=== PATIENT | female | born 1975 | race Caucasian/White ===

== ENCOUNTER → 2023-07-16 14:33 | Outpatient (BNV) | payer BC, SELFPAY | PROVIDERS: PCP Internal Medicine; Referring Provider Internal Medicine; Visit Provider Internal Medicine Medical Oncology | DX: D64.9 Anemia, unspecified (principal) | CPT/HCPCS: 99204 ==

== ENCOUNTER 2024-01-09 19:52 | Emergency (ER) | payer BC, SELFPAY ==
--- NOTE | ~2024-01-09 | CT_ITS ---
EXAMINATION: CT HEAD WITHOUT CONTRAST CLINICAL INFORMATION: Head trauma. COMPARISON: None available. TECHNIQUE: Contiguous axial imaging was performed from the skull base to vertex without intravenous administration of contrast. This CT examination was performed using dose optimization techniques as appropriate, variously including the following: *Automated exposure control. *Adjustment of mA and/or kV according to patient size (this includes techniques or standardized protocols for targeted exams where dose is matched to indication/reason for exam; i.e. extremities or head). *Use of iterative reconstruction technique. DLP: 568 mGy-cm FINDINGS: There is no evidence of acute intracranial hemorrhage or edematous territorial infarction. Milligan-white matter differentiation is preserved. There is no abnormal attenuation within the brain parenchyma. The ventricles are normal in morphology and size. No evidence for obstructive hydrocephalus. No abnormal mass effect or midline shift. No extra-axial fluid collections. Mild subgaleal hematoma along the left parietal bone, measuring 0.1 cm in depth. No associated acute osseous abnormalities. Dehiscence of the nasal septum. Extensive mucosal thickening of the paranasal sinuses. The mastoid air cells and middle ear cavities are clear. CT/CT head/brain wo IV con IMPRESSION: 1. No evidence of acute intracranial hemorrhage or edematous territorial infarction. 2. Small left parietal scalp hematoma. No associated acute osseous abnormalities. 3. Extensive sinonasal disease. Dehiscence of the nasal septum. Electronically signed by: Kishor Chatman DO 01/09/2024 10:03 PM EDT
[2024-01-09 20:01] VITALS: BP 110/80; BP 117/71; PULSE 79; PULSE 80; RESP 20; TEMP 36.5; O2SAT 98; O2SAT 99; BMI 22.9
[2024-01-09 20:16] VITALS: BP 110/80; BP 117/71; PULSE 79; PULSE 80; RESP 20; TEMP 36.5; O2SAT 98; BMI 22.9
[2024-01-09] MEDS: Acetaminophen 325 MG TABLET 650 MG PO (20:32)
--- NOTE | 2024-01-09 20:59 | ED_ITS ---
HPI - General Adult General Chief complaint: Wound/Laceration Stated complaint: hit on top of head, 1 inch lac Time Seen by Provider: 01/09/24 20:14 Source: patient History of Present Illness ED Provider: Cinthia HPI narrative: 48-year-old female with past medical history of cocaine and alcohol use presenting for head injury. Patient was reaching down to fiber picker a towel in her bathroom when she stood up she hit her head on the windowsill. She denies LOC however she began bleeding from her head immediately and subsequently came to the emergency department. Patient is not on blood thinners. Patient states that she last used cocaine and alcohol 3 days ago. Her only complaint right now is head pain denying neck pain, dizziness, vomiting, nausea, photophobia. Related Data Home Medications ?Medication ?Instructions ?Recorded ?Confirmed buspirone 15 mg tablet 15 mg PO TID 07/16/23 07/16/23 clonidine HCl 0.1 mg tablet 0.1 mg PO TID 07/16/23 07/16/23 doxycycline hyclate 100 mg tablet 100 mg PO BID 07/16/23 07/16/23 lamotrigine 25 mg tablet 25 mg PO BID 07/16/23 07/16/23 oxcarbazepine 150 mg tablet 300 mg PO BID 07/16/23 07/16/23 trazodone 100 mg tablet 200 mg PO DAILY 07/16/23 07/16/23 valacyclovir 1 gram tablet 1,000 mg PO TID 07/16/23 07/16/23 Previous Rx's ?Medication ?Instructions ?Recorded folic acid 1 mg tablet 1 mg PO DAILY #90 tabs 08/02/23 Allergies Allergy/AdvReac Type Severity Reaction Status Date / Time pseudoephedrine Allergy Severe Unknown Verified 01/09/24 20:20 [From [facility]] Review of Systems Review of Systems: Patient endorses head pain Yes all other systems are reviewed and are negative PMFSH Past Medical History Medical History (Updated 01/09/24 @ 22:18 by Lowell Vicente MD) Carpal tunnel syndrome Surgical History (Updated 07/16/23 @ 16:18 by Camden Chaudhari MD) History of intestinal surgery Family History Family History (Updated 07/16/23 @ 14:41 by Eugenio Bain) Maternal Aunt Breast cancer Paternal Aunt Breast cancer Paternal Grandmother Colon cancer Social History Social History (Updated 07/16/23 @ 14:41 by Eugenio Bain) Household Members: Family Patient Tobacco Use Status: Never used Tobacco Advance Directives: No Advance Directives Information Provided: No Do you have a plan to hurt others: No Plan Patient : No service: No Current occupational status: unemployed Physical Exam ED Vital Signs: Vital Signs - 24 hr 01/09/24 20:01 01/09/24 20:16 01/09/24 22:12 Temperature 97.7 F 97.7 F 98.6 F Pulse Rate 79 79 72 Respiratory Rate 20 20 16 Blood Pressure 117/71 117/71 107/55 L Pulse Oximetry 98 98 98 Oxygen Delivery Method Room Air Room Air Room Air BMI result Body Mass Index 22.9 Well-appearing female No focal neurologic deficits appreciated Full-thickness 2 cm laceration to crown of head No midline C-spine tenderness Lungs clear to auscultation bilaterally; nonlabored breathing Normal S1-S2 regular rate rhythm Medications Administered Discontinued Medications Generic Name Dose Route Start Last Admin Trade Name Natalie PRN Reason Stop Dose Admin Acetaminophen 650 mg 01/09/24 20:27 01/09/24 20:32 Acetaminophen 325 Mg Tablet PO 01/09/24 20:28 650 mg ONCE ONE Administration Medical Decision Making Medical Decision Making MDM Narrative: This is a 48-year-old female presenting for head trauma. She has a laceration to her head. CT head ordered to rule out head bleed -patient has no midline C-spine tenderness and has full range of motion of her neck therefore I am not obtaining cervical spine imaging; patient appears clinically sober and is walking with steady gait -I was notified by nursing staff that patient walked out of the hospital and attempt to go home. She was brought back to her room and when I went to speak to her she states that she does not want to stay in hospital and she needs to go home to take care of her dogs. I explained to her that her workup is not complete and she still needs both head laceration repair and CT results. She states that she can follow up with her primary care physician tomorrow. I explained to her the dangers of leaving which include permanent disability and and she repeated these back to me stating she understands the risks however does not want to stay. Patient is not intoxicated and has full capacity therefore I will respect her wishes and she is willing to sign AMA form. Differential Diagnosis Differential Diagnoses: The differential diagnosis associated with the presentat ion includes Head laceration, head bleed Discharge Plan Discharge Clinical Impression: Laceration of head Qualifiers: Encounter type: initial encounter Location of open wound of head: scalp Foreign body presence: without foreign body Qualified Code(s): S01.01XA - Laceration without foreign body of scalp, initial encounter Patient Disposition: Left Against Medical Advice Additional Instructions: Please immediately return to the emergency department if you can Please go to primary care physician Prescriptions: No Action oxcarbazepine 150 mg tablet 300 mg PO BID clonidine HCl 0.1 mg tablet 0.1 mg PO TID valacyclovir 1 gram tablet 1,000 mg PO TID lamotrigine 25 mg tablet 25 mg PO BID trazodone 100 mg tablet 200 mg PO DAILY doxycycline hyclate 100 mg tablet 100 mg PO BID buspirone 15 mg tablet 15 mg PO TID folic acid 1 mg Tablet 1 mg PO DAILY Qty: 90 3RF Stand Alone Forms: Against Medical Advice Discharge Date/Time: 01/09/24 22:21 Print Language: Slovak
[2024-01-09 22:12] VITALS: BP 107/55; PULSE 72; RESP 16; TEMP 37; O2SAT 98
--- NOTE | 2024-01-09 22:14 | PC.NURSE ---
pt self ambulating within room, sts she is leaving and already called an uber to bring her home. provider notified and to bedside to discuss plan of care with pt, pt continue stating she is leaving, verbalizing awareness of leaving against medical advice.
== END 2024-01-09 22:21 | disposition left against medical advice (07) ==
PROVIDERS: Emergency Provider Student in an Organized Health Care Education/Training Program; PCP Internal Medicine
DX: S01.01XA Laceration without foreign body of scalp, initial encounter (principal); W22.09XA Striking against other stationary object, initial encounter; Y93.9 Activity, unspecified; Y92.9 Unspecified place or not applicable; Y99.9 Unspecified external cause status; R51.9 Headache, unspecified; Z53.29 Procedure and treatment not carried out because of patient's decision for other reasons
CPT/HCPCS: 70450; 99284

== ENCOUNTER 2024-08-25 04:52 | Emergency (ER) | payer BC, SELFPAY ==
[2024-08-25 05:00] VITALS: BP 111/54; PULSE 112; PULSE 50; RESP 20; TEMP 36.8; O2SAT 95; BMI 25.7
--- NOTE | 2024-08-25 05:15 | PC.NURSE ---
pt in 18H demanding to be moved into a room, asking how long the wait is and when the doctor is coming because she needs benzos and clonidine for withdrawal. 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 Per MD Ca as long as patient is ambulatory and not SI she is free to leave. pt denies SI/HI/ states she is leaving and will not wait for the doctor.
--- NOTE | 2024-08-25 05:19 | PC.NURSE ---
ambulated out of treatment room with a steady gait, phone in hand states she is calling for a ride
--- OUTSIDE RECORDS SUMMARY | 2024-08-25 05:24 | XMS_ITS | Data Portability ---
Author Organization [place] [facility], Allergy Address [address] [place] [id number] Care Team Providers Care Greenhouse Technician Name Role Phone KULDEEP HAJI Primary Care Provider KULDEEP HAJI Referring Provider Assessment Encounter Date Assessment Date Assessment LastModified by Organization Details LastModified Time 09/18/2023 09/18/2023 Patient notes 3 to 4 months of severe sinus pain and pressure with obstruction requiring manual removal of crusting. Hx polysubstance use. last cocaine 2018. Last oxycodone in nose around 2019 and last alcohol use May 21, 2022. Reports iron deficiency and B12 deficiency requiring iron infusions Very anxious and lots of stress Recent laboratory studies showed mildly elevated sedimentation rate at 37 with normal ANCA. We discussed the findings of erosion of the nasal septum and lateral nasal wall is suspicious for either complications related to substance abuse or vasculitis. The laboratory studies for vasculitis are negative. She reports that previous drug testing has falsely shown positivity for fentanyl so she would presently declined any additional testing. She adamantly reports that she has not used any drugs other than as noted above. At this point I have suggested a nasal endoscopy and biopsy under anesthesia for diagnostic purposes. We discussed that the goal would not necessarily be therapeutic treatment of her sinuses given the extensive erosion we need to figure out whether there is vasculitis or so fungal disease. Risks discussed mike Not available 09/18/2023 15:32:31 10/15/2023 10/15/2023 We discussed the results of the biopsy and I suggested saline irrigations. She will follow-up with me in 3 months or sooner if necessary mike Not available 10/15/2023 16:44:34 Plan of Treatment Reminders Order Date Submit Date Provider Last Modified By Organization Details Last Modified Time Details Appointments None recorded. Lab None recorded. Referral None recorded. Procedures None recorded. Surgeries endoscopy, nasal/sinus , surgical, with biopsy, polypectomy or debridement (SURG) 2023 024 [email or web address] 9 Not available 16:07:57 endoscopy, nasal/sinus , w/ maxillary antrostomy & tissue removal (SURG) 2023 024 [email or web address] 9 Not available 4 16:08:09 stereotacti c computer-as sisted navigation (SURG) 2023 024 [email or web address] 9 Not available 16:08:22 Imaging None recorded. Medication Orders None recorded. Patient TargetsNo targets recorded. Patient InstructionsNo instructions recorded. Reason for Referral None Reported. Results Created Date Observation Date Name Description Value Unit Range Abnormal Flag Note LastModifiedBy Organization Detail LastModifiedTime 09/18/19 24 08/21/2023 CT, maxil lofac ial, w/o contr ast No observ ation record ed. [email or web address] Not Available 11/2023 15:41:14 10/03/19 24 10/02/2023 clini kathryn photo * No observ ation record ed. Not Available 14:21:35 10/11/19 24 10/02/2023 clini kathryn photo * No observ ation record ed. [email or web address] Not Available 03/2023 08:45:16 Result Notes None recorded. Problems Name Problem SNOMED Code Status Onset Date Resolution Date Notes Provider Name and Address Organization Details Recorded Time Perforation of nasal septum 03090597 Active 2023 ORLANDO PUENTE MD [address] [address], [place], [phone], [facility] - [facility] 15:29:59 Chronic sinusitis 63727099 Active 2023 ORLANDO PUENTE MD [address] [facility] [address], [place], [phone], [place] [facility] 15:30:07 History of substance abuse 248313504 Active 2023 ORLANDO PUENTE MD [address] [address], [place], [address], [place] [facility] 15:30:33 Chronic rhinitis 13144623 Active 2023 ORLANDO PUENTE MD [address] [address], [place], [phone], [facility] - [facility] 16:44:48 COVID-19 664609093 Active 2023 ORLANDO PUENTE MD [address] [address], [place], [address], [facility] - [facility] 16:45:04 Problem Notes None recorded. Procedures Surgical History Date Name Laterality Status Provider Name and Address Organization Details Recorded Time JMSNasal/Sinus Endoscopy completed ORLANDO GARCIA MD [address] [address], [place], [phone], [facility] - [facility] 09/18/2023 15:27:40 Imaging Results None recorded. Procedure Notes None recorded. Medical Equipment None Reported. Medications Name Sig Start Date Stop Date Status Note LastModified by Organization Details LastModified Time budesonide 32 mcg/actuation nasal spray INSTILL 2 SPRAYS INTO EACH NOSTRIL ONCE DAILY. ONCE SYMPTOMS IMPROVE, THEN SPRAY 1 INTO EACH NOSTRIL ONCE DAILY MAX 128MCG/DA Y) active Not Available Not Available No t Available clotrimazole 10 mg jacquelin DISSOLVE ONE JACQUELIN MOUTH/THR OAT FIVE TIMES A DAY FOR 14 DAYS active Not Available Not Available No t Available oxcarbazepine 150 mg tablet TAKE TWO TABLETS BY MOUTH TWICE A DAY active Not Available Not Available No t Available venlafaxine ER 37.5 mg capsule,extend ed release 24 hr TAKE ONE CAPSULE BY MOUTH EVERY DAY WITH FOOD IN ADDITION TO 150MG CAPSULE FOR TOTAL DAILY DOSE OF 187.5MG. DO NOT CRUSH OR CHEW active Not Available Not Available No t Available clonidine HCl 0.1 mg tablet TAKE ONE TABLET BY MOUTH THREE TIMES A DAY active Not Available Not Available No t Available prednisone 20 mg tablet TAKE TWO TABLETS BY MOUTH EVERY DAY FOR 7 DAYS AND THEN, TAKE ONE TABLET BY MOUTH EVERY DAY FOR 7 DAYS active Not Available Not Available No t Available gabapentin 400 mg capsule TAKE ONE CAPSULE BY MOUTH THREE TIMES A DAY active Not Available Not Available No t Available venlafaxine ER 150 mg capsule,extend ed release 24 hr TAKE ONE CAPSULE BY MOUTH EVERY DAY active Not Available Not Available No t Available sulfamethoxazo le 800 mg-trimethopri m 160 mg tablet TAKE ONE TABLET BY MOUTH TWICE A DAY FOR 14 DAYS active Not Available Not Available No t Available amoxicillin 500 mg tablet TAKE ONE TABLET BY MOUTH THREE TIMES A DAY FOR 10 DAYS active Not Available Not Available No t Available lamotrigine 25 mg tablet TAKE ONE TABLET BY MOUTH TWICE A DAY active Not Available Not Available No t Available carbamazepine 200 mg tablet TAKE ONE TABLET BY MOUTH TWICE A DAY active Not Available Not Available No t Available magnesium oxide 400 mg (241.3 mg magnesium) tablet TAKE ONE TABLET BY MOUTH EVERY DAY active Not Available Not Available No t Available trazodone 100 mg tablet TAKE TWO TABLETS BY MOUTH EVERY EVENING AT BEDTIME active Not Available Not Available No t Available gabapentin 300 mg capsule TAKE ONE CAPSULE BY MOUTH THREE TIMES A DAY active Not Available Not Available No t Available omeprazole 20 mg capsule,delaye d release TAKE ONE CAPSULE BY MOUTH EVERY DAY active Not Available Not Available No t Available folic acid 1 mg tablet TAKE ONE TABLET BY MOUTH EVERY DAY active Not Available Not Available No t Available levofloxacin 500 mg tablet TAKE ONE TABLET BY MOUTH EVERY DAY FOR 14 DAYS active Not Available Not Available No t Available methylpredniso lone 4 mg tablets in a dose pack TAKE SIX TABLETS FOR 1 DAY, THEN FIVE TABLETS FOR 1 DAY, THEN FOUR TABLETS FOR 1 DAY,THEN THREE TABLETS FOR 1 DAY, THEN TWO TABLETS FOR 1 DA active Not Available Not Available No t Available doxycycline hyclate 100 mg tablet TAKE ONE TABLET BY MOUTH TWICE A DAY FOR 14 DAYS WITH FLUIDS active Not Available Not Available No t Available amoxicillin 875 mg-potassium clavulanate 125 mg tablet TAKE ONE TABLET BY MOUTH EVERY 12 HOURS FOR 28 DAYS active Not Available Not Available No t Available buspirone 15 mg tablet TAKE ONE TABLET BY MOUTH THREE TIMES A DAY active Not Available Not Available No t Available duloxetine 60 mg capsule,delaye d release TAKE ONE CAPSULE BY MOUTH TWICE A DAY active Not Available Not Available No t Available GaviLyte-G 236 gram-22.74 gram-6.74 gram-5.86 gram oral solution DRINK 240ML BY MOUTH EVERY 10 MINUTES active Not Available Not Available No t Available riboflavin (vitamin B2) 400 mg tablet TAKE ONE TABLET BY MOUTH EVERY DAY active Not Available Not Available No t Available Nurtec ODT [address] ONE TABLET BY MOUTH EVERY DAY NEEDED FOR MIGRAINE active Not Available Not Available No t Available Vitals Date Recorded Body height Body mass index (BMI) Body weight Provider Name and Address Organization Details Last Updated DateTime 09/18/2023 165.1 cm 23.3 kg/m2 20888.93 g Kale Lilly [place] [facility] 09/18/2023 14:51:16 Social History None recorded. Functional Status None recorded. Mental Status None recorded. Family History Nothing Reported. Medical History No medical history recorded. Gynecological HistoryNo gynecological history recorded. Obstetrics History GPAL:G 0 P 0 0 0 0 Past Encounters Encounter ID Performer Location Encounter Start Date Encounter Closed Date Diagnosis/Indication Diagnosis SNOMED-CT Code Diagnosis ICD10 Code Diagnosis Note [id number] ORLANDO LEON MD [facility] [address] [address] 09/18/2023 14:12:37 09/18/2023 15:37:52 Perforation of nasal septum 37857785 J34.89 Chronic sinusitis 081948 00 J32.9 Please contact my surgical instrument maker, Namita, at to schedule the procedure. The risks and benefits of endoscopic sinus surgery were discussed with the patient, including: bleeding, infection, anosmia (loss of sense of smell), epiphora (tearing), double vision, loss of vision, CSF leak, continued nasal obstructio n, brain injury, septal perforatio n and continued sinus infections . The patient's questions regarding surgery were discussed in detail and their concerns were addressed. The patient provided verbal informed consent and surgery will be scheduled in the near future. History of substance abuse 110573986 F19.21 [id number] ORLANDO LEON MD [facility] [address] [address] 10/15/2023 16:11:53 10/15/2023 16:54:08 Chronic rhinitis 92027635 J31.0 Perforatio n of nasal septum 05209526 J34.89 COVID-19 307712531 U07.1 Health Concerns Section Related Observation LastModified by Organization Detai ls LastModified Time None Recorded Concern Status LastModified by Organization Details LastModified Time None Recorded Advance Directives Directive None Recorded Payers Insurance Date Sequence Insurance Name Policy Number Policy Varela Covered Member ID Varela Member ID Guarantor Name 01/18/2024 1 [place] [facility] [id number] Piero Gonzales William [id number] Notes Date Note Type Note Provider Name and Address Organization Details Recorded Time 09/18/2023 text/html Patient notes 3 to 4 months of severe sinus pain and pressure with obstruction requiring manual removal of crusting. Hx polysubstance use. last cocaine 2018. Last oxycodone in nose around 2019 and last alcohol use May 21, 2022.Reports iron deficiency and B12 deficiency requiring iron infusionsVery anxious and lots of stressRecent laboratory studies showed mildly elevated sedimentation rate at 37 with normal ANCA. ORLANDO GARCIA MD [address] [place] [address],[address], [phone], [facility] - [facility] 09/18/2023 15:33:49 10/15/2023 text/html Patient seen in follow-up after multiple nasal biopsies showed some granulation tissue but no fungal disease or vasculitis. There was a small area of foreign material but not likely to be the cause. She denies any recent intranasal pharmaceutical use. Reports last opioid use 2021. Presently has COVID-19 infection ORLANDO GARCIA MD [address] [facility],[address], [address], [facility] - [facility] 10/15/2023 16:45:21 OBGyn Episode No OBEpisode recorded.
== END 2024-08-25 05:20 | disposition left against medical advice (07) ==
PROVIDERS: Emergency Provider Emergency Medicine; PCP Internal Medicine
DX: F19.90 Other psychoactive substance use, unspecified, uncomplicated (principal); Z53.21 Procedure and treatment not carried out due to patient leaving prior to being seen by health care provider
CPT/HCPCS: 99281

== ENCOUNTER 2024-09-02 15:29 | Emergency (ER) | payer BC, SELFPAY ==
[2024-09-02 15:38] VITALS: PULSE 115
[2024-09-02 15:47] VITALS: BP 112/82; PULSE 118; RESP 24; TEMP 37.1; O2SAT 94; BMI 20.6
--- NOTE | 2024-09-02 15:58 | ECG_ITS ---
Test Reason : OVERDOSE Blood Pressure : */* mmHG Vent. Rate : 88 BPM Atrial Rate : 88 BPM P-R Int : 110 ms QRS Dur : 84 ms QT Int : 370 ms P-R-T Axes : 0 52 40 degrees QTcB Int : 447 ms Sinus rhythm with short MA Otherwise normal ECG No previous ECGs available Referred By: Shaan Merlos Electronically Signed By: MAYO KOO
--- NOTE | 2024-09-02 16:00 | ED.GENADULT ---
HPI - General Adult General Chief complaint: ETOH/Substance Use Stated complaint: SI, erratic, section 12 Time Seen by Provider: 09/02/24 15:48 Source: patient, EMS and police Mode of arrival: EMS Limitations: no limitations History of Present Illness ED Provider: DR. Merlos HPI narrative: 49-year-old female history of drug use as per patient mostly cocaine for long time, patient was not able to use drugs for the past few days, patient claimed that she brought heroin from the street yesterday that she was scared to use because she pure fentanyl. Stated that if she does not use cocaine for several days she gets very agitated and get a bizarre behavior. Patient stated that she took the heroin yesterday an intention to hurt herself because she felt SI, now patient do not feel SI anymore feel very agitated and requesting sedative to come her down. Patient is under section 12 by the police sergeant. Related Data Home Medications ?Medication ?Instructions ?Recorded ?Confirmed buspirone 15 mg tablet 15 mg PO TID 07/16/23 09/03/24 clonidine HCl 0.1 mg tablet 0.1 mg PO TID 07/16/23 09/03/24 lamotrigine 25 mg tablet 25 mg PO BID 07/16/23 09/03/24 trazodone 100 mg tablet 200 mg PO BEDTIME PRN Insomnia 07/16/23 09/03/24 duloxetine 60 mg capsule,delayed 60 mg PO DAILY 09/03/24 09/03/24 release gabapentin 400 mg capsule 400 mg PO TID 09/03/24 09/03/24 nifedipine 60 mg tablet,extended 60 mg PO DAILY 09/03/24 09/03/24 release propranolol 10 mg tablet 10 mg PO BID PRN Anxiety 09/03/24 09/03/24 Allergies Allergy/AdvReac Type Severity Reaction Status Date / Time pseudoephedrine (From Allergy Severe Unknown Verified 09/02/24 15:48 Sudafed) Review of Systems Review of Systems: All other systems are reviewed and are negative Constitutional: Reports as per HPI and Reports no additional constitutional complaints Eyes: Reports as per HPI and Reports no additional eye complaints Reports system reviewed and no additional complaints, except as documented Cardiovascular: Reports as per HPI and Reports no additional cardiovascular complaints Respiratory: Reports as per HPI and Reports no additional respiratory complaints Gastrointestinal: Reports as per HPI and Reports no additional gastrointestinal complaints Genitourinary: Reports no additional female genitourinary complaints Musculoskeletal: Reports no additional musculoskeletal complaints Skin/Breast: Reports system reviewed and no additional complaints, except as docu Psychiatric: Reports no additional psychiatric complaints Endocrine: Reports no additional endocrine complaints Hematologic/Lymphatic: Reports no additional hematologic/lymphatic complaints Allergic/Immunologic: Reports no additional allergic/immunologic complaints Reports system reviewed and no additional complaints, except as documented and Reports Abnormal speech present [facility] Past Medical History Medical History Carpal tunnel syndrome Surgical History History of intestinal surgery Family History Family History Maternal Aunt Breast cancer Paternal Aunt Breast cancer Paternal Grandmother Colon cancer Social History Social History Household Members: Family Patient Tobacco Use Status: Never used Tobacco Advance Directives: No Advance Directives Information Provided: No service: No Current occupational status: unemployed Physical Exam ED Vital Signs: Vital Signs - 24 hr 09/03/24 15:30 09/03/24 19:59 09/03/24 20:01 Temperature Pulse Rate 82 Respiratory Rate 16 Blood Pressure 133/72 133/72 Pulse Oximetry Oxygen Delivery Method 09/03/24 20:04 09/03/24 21:07 Temperature 99.0 F 99 F Pulse Rate 82 82 Respiratory Rate 20 20 Blood Pressure 133/72 133/72 Pulse Oximetry 98 98 Oxygen Delivery Method Room Air Room Air BMI result Body Mass Index 20.6 Vital signs have been reviewed and appear to be correct. Blood pressure elevated. Heart rate elevated. Respiratory elevated. Temperature normal. Oxygen saturation normal. Appearance: Agitated, erratic behavior, still cooperative. No acute distress. Head: Normal external exam. Normocephalic. Atraumatic. No Serrano signs noted. No raccoon eyes noted Eyes: PERRLA. EOMI. Conjunctiva and sclera normal. Eyelids normal. ENT: TM's Normal. Pharynx normal. Uvula midline. Moist mucous membranes. No trismus noted. No drooling noted. No muffled voice noted. Neck: Normal inspection. Neck supple. FROM. No adenopathy. Thyroid Normal. No meningeal signs. No neck mass noted. CVS: Normal heart rate and rhythm. Heart sound normal. No murmurs noted. Pulses normal throughout. Respiratory: No respiratory distress. Painless inspiration. Breath sounds normal. No wheezes/rales/rhonchi noted. Chest nontender. No accessory muscle usage noted or decreased air movement noted. Abdomen: Soft and nontender. Bowel sounds normal in all 4 quadrants. No distention noted. No organomegaly noted. No visible injury noted. Back: No CVA tenderness. Full range of motion noted. Skin: Skin warm and dry. Normal skin color. Normal skin turgor. No rashes/lesions/lacerations noted. Extremities: No lower extremity edema. Extremities exhibit normal range of motion. Extremities nontender. Neuro: Oriented X 3. Cranial nerve exam: II-XII are grossly intact No motor deficit. No sensory deficit. Reflexes normal. Patient Orientation: Person, Place, Time and Situation, okay hygiene and grooming. Fair eye contact, attentive, no tics or tremors. Level of Consciousness: Awake, Appropriate and Alert Patient Behavior: Appropriate, Guarded, Cooperative and Anxious Mood Description: Constricted, Blunted and Apprehensive Affect Description: Constricted, Blunted and Apprehensive Patient Cognition Impaired: No Ability to Follow Directions: Excellent Speech Pattern: Clear, Appropriate and Spontaneous Speech, nonpressured, spontaneous with regular rate and rhythm, normal volume and prosody. No dysarthria. Memory Description: Intact, Immediate Intact and Short Term Intact Hallucinations: None Delusions: Not Present Thought Process: Intact Thought Content: positive for Intact, positive for Logical, denies Suicidal Ideation and denies Homicidal Ideation. Depressive Symptoms: Not present. Judgement and Insight: Limited but adequate. Course Reevaluation(s) Reevaluation #1: Medically cleared, will start physician observation, patient found initially to be hypoglycemic no known history of diabetes on this patient, because patient needed sedation for erratic behavior concern of having occult hypoglycemia until patient is awake and able to tolerate p.o. intake. Continue with section 12 while in the ED, continue with one-to-one observation. Time: 19:17 Reevaluation #2: Time: 16:30 Date: 09/03/24 Provider: Alton Ca MD The patient is a 49-year-old female who presented to the emergency department yesterday after having had a heroin overdose. It was unclear if there has been any intention quality with regard to this overdose. She was medically cleared yesterday. However she was kept in the emergency room for evaluation by the care team. The patient was seen by the care team today. Apparently the patient has had a lot of psychosocial stressors and a lot of family dysfunction recently. Ultimately the care team evaluation was that the patient should be kept in the hospital on a section 12 for a dual diagnosis bed search. Reevaluation #3: 09/04/2024 21:00 DR. Mrelos's Progress note: Discontinue physician observation now, patient will be transferred to inpatient [facility] hospital for dual diagnosis. Time: 21:00 Medications Administered Discontinued Medications Generic Name Dose Route Start Last Admin Trade Name Colbyq PRN Reason Stop Dose Admin Buspirone HCl 15 mg 09/03/24 21:00 09/03/24 19:59 Buspirone Hcl 5 Mg Tablet PO 15 mg TID KATINA Administration Clonidine HCl 0.1 mg 09/03/24 21:00 09/03/24 19:59 Clonidine Hcl 0.1 Mg Tablet PO 0.1 mg TID KATINA Administration Protocol Dextrose 25 gm 09/02/24 17:42 09/02/24 17:44 Dextrose 50 % 25 Gm/50 Ml Syringe IVPUSH 09/02/24 17:43 25 gm ONCE ONE Administration Diazepam 2.5 mg 09/02/24 15:59 09/02/24 16:12 Diazepam 10 Mg/2 Ml Cartridge IVPUSH 09/02/24 16:00 2.5 mg STAT STA Administration Diazepam 2.5 mg 09/02/24 16:56 09/02/24 17:06 Diazepam 10 Mg/2 Ml Cartridge IVPUSH 09/02/24 16:57 2.5 mg STAT STA Administration Diazepam 10 mg 09/03/24 00:50 09/03/24 00:55 Diazepam 5 Mg Tablet PO 09/03/24 00:51 10 mg ONCE ONE Administration Diphenhydramine HCl 25 mg 09/02/24 19:24 09/02/24 19:31 Diphenhydramine Hcl 50 Mg/Ml Vial IVPUSH 09/02/24 19:25 25 mg ONCE ONE Administration Gabapentin 400 mg 09/03/24 21:00 09/03/24 19:59 Gabapentin 400 Mg Capsule PO 400 mg TID KATINA Administration Dextrose 1,000 mls @ 125 mls/hr 09/02/24 17:45 09/03/24 14:49 D5w IVCONT Not Given .Q8H KATINA Lamotrigine 25 mg 09/03/24 21:00 09/03/24 19:59 Lamotrigine 25 Mg Tablet PO 25 mg BID KATINA Administration Lorazepam 2 mg 09/03/24 13:29 09/03/24 13:39 Lorazepam 1 Mg Tablet PO 09/03/24 13:30 2 mg ONCE ONE Administration Lorazepam 2 mg 09/03/24 14:44 09/03/24 14:48 Lorazepam 1 Mg Tablet PO 09/03/24 14:45 2 mg ONCE ONE Administration Ondansetron HCl 4 mg 09/02/24 19:24 09/02/24 19:31 Ondansetron Hcl 4 Mg/2 Ml Vial IVPUSH 09/02/24 19:25 4 mg ONCE ONE Administration Propranolol HCl 10 mg 09/03/24 16:31 09/03/24 20:01 Propranolol Hcl 10 Mg Tablet PO 10 mg BID PRN Administration Anxiety Protocol Trazodone HCl 200 mg 09/03/24 21:00 09/03/24 19:58 Trazodone Hcl 100 Mg Tablet PO 200 mg BEDTIME PRN Administration Insomnia Medical Decision Making Medical Decision Making [facility] Narrative: Patient is seen by care team will be transferred to [facility] for polysubstance abuse and depression Differential Diagnosis Differential Diagnoses: The differential diagnosis associated with the presentation includes (Intentional overdose, narcotic withdrawal, electrolyte derangement, severe anemia.) Admission/Observation Consideration of admission/observation: Escalation of care including admission/observation considered Lab Data [facility] Lab Attestation statement: I reviewed the patient's lab results. 09/02/24 16:17 09/02/24 16:17 Labs: Lab Results 09/02/24 09/02/24 09/02/24 Range/Units 16:17 17:13 18:07 WBC 13.1 H (4.8-10.8) X10*3/uL RBC 4.39 (4.20-5.50) X10*6/uL Hgb 12.4 D (12.0-16.0) g/dl Hct 37.2 D (37.0-47.0) % MCV 84.7 (80.0-98.0) fL MCH 28.2 (27.0-33.0) pg MCHC 33.3 (31.0-35.0) g/dl RDW 13.1 (11.0-16.0) % Plt Count 421 H D (160-400) X10*3/uL MPV 8.6 L (9.4-12.3) fL Immature Gran % (Auto) 0.5 H (0.0-0.4) % Neut % (Auto) 86.7 H (45-73) % Lymph % (Auto) 6.7 L (20-40) % Turner % (Auto) 5.6 (2-11) % Eos % (Auto) 0.0 (0-4) % Baso % (Auto) 0.5 (0-2) % Lymph # (Auto) 0.9 L (1.2-4.9) X10*3/uL Turner # (Auto) 0.7 (0.1-1.2) X10*3/uL Eos # (Auto) 0.0 (0.0-0.4) X10*3/uL Baso # (Auto) 0.1 (0.0-0.2) X10*3/uL Abs Immat Gran (auto) 0.07 H (0.00-0.03) X10*3/uL Absolute Neuts (auto) 11.3 H (2.0-8.3) x10*3/uL Absolute Nucleated RBC 0.000 (0.0-0.012) X10*3/uL Nucleated RBC % (auto) 0.0 (0.0-0.2) /100WBC Sodium 144 (135-145) mmol/L Potassium 3.9 (3.3-5.1) mmol/L Chloride 108 (96-108) mmol/L Carbon Dioxide 25 (22-29) mmol/L Anion Gap 15 (12-20) BUN 16 (9-16) mg/dL Creatinine 0.86 (0.5-1.4) mg/dL Estim Creat Clear Calc 71.7 Estimated GFR > 60 POC Glucose 74 165 H (60-115) mg/dL Random Glucose 41 L* (60-115) mg/dL Calcium 9.0 (8.4-10.2) mg/dL Total Bilirubin 0.3 (0.0-1.0) mg/dL Direct Bilirubin 0.2 (0.0-0.5) mg/dL AST 62 H (5-31) U/L ALT 38 H (0-31) U/L Alkaline Phosphatase 75 (39-117) U/L Total Protein 6.7 (6.5-8.0) g/dL Albumin 4.3 (3.5-5.0) g/dL Lipase 7 L (8-78) U/L Beta HCG, Quant < 2 mIU/mL Urine Color Urine Appearance Urine pH (5.0-9.0) Ur Specific [place] (1.005-1.025) Urine Protein (Neg-Trace) mg/dL Urine Glucose (UA) (Negative) mg/dL Urine Ketones (Negative) mg/dL Urine Blood (Negative) Urine Nitrite (Negative) Ur Leukocyte Esterase (Negative) Urine RBC (0-2) /HPF Urine WBC (0-5) /HPF Ur Squamous Epith Cells (0-2) /HPF Urine Bacteria (None Seen) Hyaline Casts (0-2) /LPF Salicylates < 5.0 L (15-30) mg/dL Urine Opiates Screen (Not Detect) Ur Buprenorphine Scrn (Not Detect) ng/mL Ur Oxycodone Screen (Not Detect) ng/mL Urine Methadone Screen (Not Detect) ng/mL Urine Fentanyl Screen (Not Detect) Acetaminophen < 3 (<30) mcg/mL Ur Barbiturates Screen (Not Detect) Ur Phencyclidine Scrn (Not Detect) Ur Amphetamines Screen (Not Detect) U Benzodiazepines Scrn (Not Detect) Urine Cocaine Screen (Not Detect) U Marijuana (THC) Screen (Not Detect) Ethyl Alcohol < 10 mg/dL 09/02/24 09/02/24 09/02/24 Range/Units 20:18 21:09 22:24 WBC (4.8-10.8) X10*3/uL RBC (4.20-5.50) X10*6/uL Hgb (12.0-16.0) g/dl Hct (37.0-47.0) % MCV (80.0-98.0) fL MCH (27.0-33.0) pg MCHC (31.0-35.0) g/dl RDW (11.0-16.0) % Plt Count (160-400) X10*3/uL MPV (9.4-12.3) fL Immature Gran % (Auto) (0.0-0.4) % Neut % (Auto) (45-73) % Lymph % (Auto) (20-40) % Turner % (Auto) (2-11) % Eos % (Auto) (0-4) % Baso % (Auto) (0-2) % Lymph # (Auto) (1.2-4.9) X10*3/uL Turner # (Auto) (0.1-1.2) X10*3/uL Eos # (Auto) (0.0-0.4) X10*3/uL Baso # (Auto) (0.0-0.2) X10*3/uL Abs Immat Gran (auto) (0.00-0.03) X10*3/uL Absolute Neuts (auto) (2.0-8.3) x10*3/uL Absolute Nucleated RBC (0.0-0.012) X10*3/uL Nucleated RBC % (auto) (0.0-0.2) /100WBC Sodium (135-145) mmol/L Potassium (3.3-5.1) mmol/L Chloride (96-108) mmol/L Carbon Dioxide (22-29) mmol/L Anion Gap (12-20) BUN (9-16) mg/dL Creatinine (0.5-1.4) mg/dL Estim Creat Clear Calc Estimated GFR POC Glucose 75 117 H 103 (60-115) mg/dL Random Glucose (60-115) mg/dL Calcium (8.4-10.2) mg/dL Total Bilirubin (0.0-1.0) mg/dL Direct Bilirubin (0.0-0.5) mg/dL AST (5-31) U/L ALT (0-31) U/L Alkaline Phosphatase (39-117) U/L Total Protein (6.5-8.0) g/dL Albumin (3.5-5.0) g/dL Lipase (8-78) U/L Beta HCG, Quant mIU/mL Urine Color Urine Appearance Urine pH (5.0-9.0) Ur Specific [place] (1.005-1.025) Urine Protein (Neg-Trace) mg/dL Urine Glucose (UA) (Negative) mg/dL Urine Ketones (Negative) mg/dL Urine Blood (Negative) Urine Nitrite (Negative) Ur Leukocyte Esterase (Negative) Urine RBC (0-2) /HPF Urine WBC (0-5) /HPF Ur Squamous Epith Cells (0-2) /HPF Urine Bacteria (None Seen) Hyaline Casts (0-2) /LPF Salicylates (15-30) mg/dL Urine Opiates Screen (Not Detect) Ur Buprenorphine Scrn (Not Detect) ng/mL Ur Oxycodone Screen (Not Detect) ng/mL Urine Methadone Screen (Not Detect) ng/mL Urine Fentanyl Screen (Not Detect) Acetaminophen (<30) mcg/mL Ur Barbiturates Screen (Not Detect) Ur Phencyclidine Scrn (Not Detect) Ur Amphetamines Screen (Not Detect) U Benzodiazepines Scrn (Not Detect) Urine Cocaine Screen (Not Detect) U Marijuana (THC) Screen (Not Detect) Ethyl Alcohol mg/dL 09/02/24 09/03/24 09/03/24 Range/Units 23:21 00:24 01:34 WBC (4.8-10.8) X10*3/uL RBC (4.20-5.50) X10*6/uL Hgb (12.0-16.0) g/dl Hct (37.0-47.0) % MCV (80.0-98.0) fL MCH (27.0-33.0) pg MCHC (31.0-35.0) g/dl RDW (11.0-16.0) % Plt Count (160-400) X10*3/uL MPV (9.4-12.3) fL Immature Gran % (Auto) (0.0-0.4) % Neut % (Auto) (45-73) % Lymph % (Auto) (20-40) % Turner % (Auto) (2-11) % Eos % (Auto) (0-4) % Baso % (Auto) (0-2) % Lymph # (Auto) (1.2-4.9) X10*3/uL Turner # (Auto) (0.1-1.2) X10*3/uL Eos # (Auto) (0.0-0.4) X10*3/uL Baso # (Auto) (0.0-0.2) X10*3/uL Abs Immat Gran (auto) (0.00-0.03) X10*3/uL Absolute Neuts (auto) (2.0-8.3) x10*3/uL Absolute Nucleated RBC (0.0-0.012) X10*3/uL Nucleated RBC % (auto) (0.0-0.2) /100WBC Sodium (135-145) mmol/L Potassium (3.3-5.1) mmol/L Chloride (96-108) mmol/L Carbon Dioxide (22-29) mmol/L Anion Gap (12-20) BUN (9-16) mg/dL Creatinine (0.5-1.4) mg/dL Estim Creat Clear Calc Estimated GFR POC Glucose 100 98 113 (60-115) mg/dL Random Glucose (60-115) mg/dL Calcium (8.4-10.2) mg/dL Total Bilirubin (0.0-1.0) mg/dL Direct Bilirubin (0.0-0.5) mg/dL AST (5-31) U/L ALT (0-31) U/L Alkaline Phosphatase (39-117) U/L Total Protein (6.5-8.0) g/dL Albumin (3.5-5.0) g/dL Lipase (8-78) U/L Beta HCG, Quant mIU/mL Urine Color Urine Appearance Urine pH (5.0-9.0) Ur Specific [place] (1.005-1.025) Urine Protein (Neg-Trace) mg/dL Urine Glucose (UA) (Negative) mg/dL Urine Ketones (Negative) mg/dL Urine Blood (Negative) Urine Nitrite (Negative) Ur Leukocyte Esterase (Negative) Urine RBC (0-2) /HPF Urine WBC (0-5) /HPF Ur Squamous Epith Cells (0-2) /HPF Urine Bacteria (None Seen) Hyaline Casts (0-2) /LPF Salicylates (15-30) mg/dL Urine Opiates Screen (Not Detect) Ur Buprenorphine Scrn (Not Detect) ng/mL Ur Oxycodone Screen (Not Detect) ng/mL Urine Methadone Screen (Not Detect) ng/mL Urine Fentanyl Screen (Not Detect) Acetaminophen (<30) mcg/mL Ur Barbiturates Screen (Not Detect) Ur Phencyclidine Scrn (Not Detect) Ur Amphetamines Screen (Not Detect) U Benzodiazepines Scrn (Not Detect) Urine Cocaine Screen (Not Detect) U Marijuana (THC) Screen (Not Detect) Ethyl Alcohol mg/dL 09/03/24 09/03/24 09/03/24 Range/Units 02:43 03:47 04:34 WBC (4.8-10.8) X10*3/uL RBC (4.20-5.50) X10*6/uL Hgb (12.0-16.0) g/dl Hct (37.0-47.0) % MCV (80.0-98.0) fL MCH (27.0-33.0) pg MCHC (31.0-35.0) g/dl RDW (11.0-16.0) % Plt Count (160-400) X10*3/uL MPV (9.4-12.3) fL Immature Gran % (Auto) (0.0-0.4) % Neut % (Auto) (45-73) % Lymph % (Auto) (20-40) % Turner % (Auto) (2-11) % Eos % (Auto) (0-4) % Baso % (Auto) (0-2) % Lymph # (Auto) (1.2-4.9) X10*3/uL Turner # (Auto) (0.1-1.2) X10*3/uL Eos # (Auto) (0.0-0.4) X10*3/uL Baso # (Auto) (0.0-0.2) X10*3/uL Abs Immat Gran (auto) (0.00-0.03) X10*3/uL Absolute Neuts (auto) (2.0-8.3) x10*3/uL Absolute Nucleated RBC (0.0-0.012) X10*3/uL Nucleated RBC % (auto) (0.0-0.2) /100WBC Sodium (135-145) mmol/L Potassium (3.3-5.1) mmol/L Chloride (96-108) mmol/L Carbon Dioxide (22-29) mmol/L Anion Gap (12-20) BUN (9-16) mg/dL Creatinine (0.5-1.4) mg/dL Estim Creat Clear Calc Estimated GFR POC Glucose 191 H 117 H 109 (60-115) mg/dL Random Glucose (60-115) mg/dL Calcium (8.4-10.2) mg/dL Total Bilirubin (0.0-1.0) mg/dL Direct Bilirubin (0.0-0.5) mg/dL AST (5-31) U/L ALT (0-31) U/L Alkaline Phosphatase (39-117) U/L Total Protein (6.5-8.0) g/dL Albumin (3.5-5.0) g/dL Lipase (8-78) U/L Beta HCG, Quant mIU/mL Urine Color Urine Appearance Urine pH (5.0-9.0) Ur Specific [place] (1.005-1.025) Urine Protein (Neg-Trace) mg/dL Urine Glucose (UA) (Negative) mg/dL Urine Ketones (Negative) mg/dL Urine Blood (Negative) Urine Nitrite (Negative) Ur Leukocyte Esterase (Negative) Urine RBC (0-2) /HPF Urine WBC (0-5) /HPF Ur Squamous Epith Cells (0-2) /HPF Urine Bacteria (None Seen) Hyaline Casts (0-2) /LPF Salicylates (15-30) mg/dL Urine Opiates Screen (Not Detect) Ur Buprenorphine Scrn (Not Detect) ng/mL Ur Oxycodone Screen (Not Detect) ng/mL Urine Methadone Screen (Not Detect) ng/mL Urine Fentanyl Screen (Not Detect) Acetaminophen (<30) mcg/mL Ur Barbiturates Screen (Not Detect) Ur Phencyclidine Scrn (Not Detect) Ur Amphetamines Screen (Not Detect) U Benzodiazepines Scrn (Not Detect) Urine Cocaine Screen (Not Detect) U Marijuana (THC) Screen (Not Detect) Ethyl Alcohol mg/dL 09/03/24 09/03/24 Range/Units 11:46 19:56 WBC (4.8-10.8) X10*3/uL RBC (4.20-5.50) X10*6/uL Hgb (12.0-16.0) g/dl Hct (37.0-47.0) % MCV (80.0-98.0) fL MCH (27.0-33.0) pg MCHC (31.0-35.0) g/dl RDW (11.0-16.0) % Plt Count (160-400) X10*3/uL MPV (9.4-12.3) fL Immature Gran % (Auto) (0.0-0.4) % Neut % (Auto) (45-73) % Lymph % (Auto) (20-40) % Turner % (Auto) (2-11) % Eos % (Auto) (0-4) % Baso % (Auto) (0-2) % Lymph # (Auto) (1.2-4.9) X10*3/uL Turner # (Auto) (0.1-1.2) X10*3/uL Eos # (Auto) (0.0-0.4) X10*3/uL Baso # (Auto) (0.0-0.2) X10*3/uL Abs Immat Gran (auto) (0.00-0.03) X10*3/uL Absolute Neuts (auto) (2.0-8.3) x10*3/uL Absolute Nucleated RBC (0.0-0.012) X10*3/uL Nucleated RBC % (auto) (0.0-0.2) /100WBC Sodium (135-145) mmol/L Potassium (3.3-5.1) mmol/L Chloride (96-108) mmol/L Carbon Dioxide (22-29) mmol/L Anion Gap (12-20) BUN (9-16) mg/dL Creatinine (0.5-1.4) mg/dL Estim Creat Clear Calc Estimated GFR POC Glucose 132 H (60-115) mg/dL Random Glucose (60-115) mg/dL Calcium (8.4-10.2) mg/dL Total Bilirubin (0.0-1.0) mg/dL Direct Bilirubin (0.0-0.5) mg/dL AST (5-31) U/L ALT (0-31) U/L Alkaline Phosphatase (39-117) U/L Total Protein (6.5-8.0) g/dL Albumin (3.5-5.0) g/dL Lipase (8-78) U/L Beta HCG, Quant mIU/mL Urine Color Dark Yellow Urine Appearance Cloudy Urine pH 6.0 (5.0-9.0) Ur Specific [place] >= 1.030 H (1.005-1.025) Urine Protein 30 (1+) H (Neg-Trace) mg/dL Urine Glucose (UA) 100 H (Negative) mg/dL Urine Ketones Trace (Negative) mg/dL Urine Blood Negative (Negative) Urine Nitrite Negative (Negative) Ur Leukocyte Esterase Trace H (Negative) Urine RBC 0-2 (0-2) /HPF Urine WBC 0-5 (0-5) /HPF Ur Squamous Epith Cells 6-10 (0-2) /HPF Urine Bacteria Trace (None Seen) Hyaline Casts 0-2 (0-2) /LPF Salicylates (15-30) mg/dL Urine Opiates Screen POSITIVE H (Not Detect) Ur Buprenorphine Scrn Not Detected (Not Detect) ng/mL Ur Oxycodone Screen Not Detected (Not Detect) ng/mL Urine Methadone Screen Not Detected (Not Detect) ng/mL Urine Fentanyl Screen POSITIVE H (Not Detect) Acetaminophen (<30) mcg/mL Ur Barbiturates Screen Not Detected (Not Detect) Ur Phencyclidine Scrn Not Detected (Not Detect) Ur Amphetamines Screen Not Detected (Not Detect) U Benzodiazepines Scrn POSITIVE H (Not Detect) Urine Cocaine Screen POSITIVE H (Not Detect) U Marijuana (THC) Screen POSITIVE H (Not Detect) Ethyl Alcohol mg/dL Independent Interpretation I performed an independent interpretation of an: EKG Interpretation: Normal sinus rhythm short OR interval normal axis no acute STT wave changes no acute ischemia Discharge Plan Discharge Clinical Impression: Substance abuse, Major depressive disorder Patient Disposition: Xfer Psychiatric Hosp Transfer Details: Will be admitted to [facility] for dual diagnosis depression and substance abuse Prescriptions: No Action clonidine HCl 0.1 mg tablet 0.1 mg PO TID lamotrigine 25 mg tablet 25 mg PO BID trazodone 100 mg tablet 200 mg PO BEDTIME PRN (Reason: Insomnia) buspirone 15 mg tablet 15 mg PO TID gabapentin 400 mg capsule 400 mg PO TID propranolol 10 mg tablet 10 mg PO BID PRN (Reason: Anxiety) nifedipine 60 mg tablet extended release 60 mg PO DAILY duloxetine 60 mg capsule,delayed release(DR/EC) 60 mg PO DAILY Interventions: Acute Care Transfer Worksheet (ED) Last Done: 09/03/24 21:07 Discharge Date/Time: 09/03/24 21:10 Print Language: Unable To Collect
[2024-09-02] MEDS: diazePAM 10 MG/2 ML CARTRIDGE 2.5 MG IVPUSH ×2 (16:12→17:06)
[2024-09-02 16:22] LABS: MANUAL DIFF FLAG NO
[2024-09-02 16:26] LABS: Basophils Absolute Auto 0.1 X10*3/uL (0.0-0.2); Basophils Percent Auto 0.5 % (0-2); Hematocrit 37.2 % (37.0-47.0); Hemoglobin 12.4 g/dl (12.0-16.0); Imm Gran Abs Auto 0.07 X10*3/uL (0.00-0.03); Imm Gran Pct Auto 0.5 % (0.0-0.4); Lymphocytes Absolute Auto 0.9 X10*3/uL (1.2-4.9); Lymphocytes Percent Auto 6.7 % (20-40); Mean Corpuscular HGB Conc 33.3 g/dl (31.0-35.0); Mean Corpuscular Hemoglobin 28.2 pg (27.0-33.0); Mean Corpuscular Volume 84.7 fL (80.0-98.0); Mean Platelet Volume 8.6 fL (9.4-12.3); Monocytes Absolute Auto 0.7 X10*3/uL (0.1-1.2); Monocytes Percent Auto 5.6 % (2-11); Neutrophils Absolute Auto 11.3 x10*3/uL (2.0-8.3); Neutrophils Percent Auto 86.7 % (45-73); Platelet Count 421 X10*3/uL (160-400); Red Blood Count 4.39 X10*6/uL (4.20-5.50); Red Cell Distribution Width 13.1 % (11.0-16.0); White Blood Count 13.1 X10*3/uL (4.8-10.8)
[2024-09-02 16:51] LABS: Acetaminophen LAB < 3 mcg/mL (<30); Alanine Aminotransferase 38 U/L (0-31); Albumin Level 4.3 g/dL (3.5-5.0); Alkaline Phosphatase 75 U/L (39-117); Anion Gap 15 (12-20); Aspartate Amino Transferase 62 U/L (5-31); Bilirubin Direct 0.2 mg/dL (0.0-0.5); Bilirubin Total 0.3 mg/dL (0.0-1.0); Blood Urea Nitrogen 16 mg/dL (9-16); Carbon Dioxide 25 mmol/L (22-29); Chloride 108 mmol/L (96-108); Creatinine Clr Calc Pharmacy 71.7; Estimated Glomerular Filt Rate > 60; Ethanol < 10 mg/dL; Glucose Random 41 mg/dL (60-115); Lipase 7 U/L (8-78); Potassium 3.9 mmol/L (3.3-5.1); Salicylate < 5.0 mg/dL (15-30); Sodium 144 mmol/L (135-145); Total Protein 6.7 g/dL (6.5-8.0)
--- NOTE | 2024-09-02 17:05 | PC.NURSE ---
brianna 29- pt again requesting medication, provider was notified and pt was medicated
--- NOTE | 2024-09-02 17:09 | PC.NURSE ---
pt had iv inserted, labs drawn, ekg performed, threat monitoring analyst applied, 1:1 sitter for patient safety due to section 12 with SI. pt was previously medicated by tila.
--- NOTE | 2024-09-02 17:14 | PC.NURSE ---
pt repeat poc was 74, pt was medicated with valium per order, pts O2 sat decreased to 86% on room air after administration, pt was placed on 4L NC to bring the O2 sat to 96.
[2024-09-02 17:17] LABS: Glucose, Whole Blood 74 mg/dL (60-115)
[2024-09-02] MEDS: Dextrose 50 % 25 GM/50 ML SYRINGE IVPUSH (17:44)
[2024-09-02] MEDS: Dextrose 5 % 1,000 ML 125 ML IVCONT (17:47)
--- NOTE | 2024-09-02 17:59 | PC.NURSE ---
additional IV placed in Rt AC, IVP dextrose given and D5W started per order.
[2024-09-02 18:06] VITALS: BP 112/59; PULSE 85; RESP 26; TEMP 36.7; O2SAT 98
[2024-09-02 18:12] LABS: Glucose, Whole Blood 165 mg/dL (60-115)
--- OUTSIDE RECORDS SUMMARY | 2024-09-02 18:55 | XMS_ITS ---
Author Name [facility] Organization Unknown Encounters Encounter Type Encounter Reason Primary Diagnosis Location Date Emergency Legal circumstances Legal circumstances Y raad [facility] 10/07/2023 Care Team Organization Name Specialty Phone Email Start Date End Da delores [facility] 10/07/2023
[2024-09-02] MEDS: diphenhydrAMINE HCL 50 MG/ML VIAL 25 MG IVPUSH (19:31)
[2024-09-02] MEDS: ondansetron HCL 4 MG/2 ML VIAL IVPUSH (19:31)
--- NOTE | 2024-09-02 19:34 | PC.NURSE ---
Addendum entered by Siria Paul RN 09/03/24 00:12: pt CIWA score 22 MD Arnold aware. no new orders at this time. Original Note: assumed care for pt at this time. pt noted to be restless and flailing in the stretcher. Pt COWS score of 26. Dr. Merlos aware, pending new orders. Due to restlessness and thrashing in bed pts IV in LAC dislodged, bleeding controlled, dry clean dressing applied.
[2024-09-02 20:20] LABS: Glucose, Whole Blood 75 mg/dL (60-115)
[2024-09-02 20:32] VITALS: PULSE 74; RESP 12; TEMP 36.4; O2SAT 94
[2024-09-02 21:15] LABS: Glucose, Whole Blood 117 mg/dL (60-115)
[2024-09-02 22:28] LABS: Glucose, Whole Blood 103 mg/dL (60-115)
[2024-09-02 23:29] LABS: Glucose, Whole Blood 100 mg/dL (60-115)
[2024-09-02 23:39] VITALS: BP 97/77; PULSE 78; RESP 15; TEMP 36.7; O2SAT 94
[2024-09-03] VITALS (10 sets, daily range): BP systolic 102–144; BP diastolic 62–86; PULSE 67–82; RESP 10–20; TEMP 36.7–37.2; O2SAT 95–99
[2024-09-03 00:37] LABS: Glucose, Whole Blood 98 mg/dL (60-115)
[2024-09-03] MEDS: diazePAM 5 MG TABLET 10 MG PO (00:55)
[2024-09-03 01:38] LABS: Glucose, Whole Blood 113 mg/dL (60-115)
[2024-09-03] MEDS: Dextrose 5 % 1,000 ML 125 ML IVCONT (02:27)
[2024-09-03 02:52] LABS: Glucose, Whole Blood 191 mg/dL (60-115)
[2024-09-03 03:51] LABS: Glucose, Whole Blood 117 mg/dL (60-115)
[2024-09-03 04:37] LABS: Glucose, Whole Blood 109 mg/dL (60-115)
--- NOTE | 2024-09-03 07:32 | PC.NURSE ---
Patient is a 49-year-old female history of microcytic hypochromic anemia and drug use as per patient mostly cocaine for long time, patient was not able to use drugs for the past few days, patient claimed that she brought heroin from the street yesterday that she was scared to use because she pure fentanyl. Stated that if she does not use cocaine for several days she gets very agitated and get a bizarre behavior. Patient stated that she took the heroin yesterday an intention to hurt herself because she felt SI. Patient is under section 12 by the booking police officer. monitoring engineer maintaned and NSR noted. Lungs clear bilat. Respirations even and non-labored. Abdomen soft, non-tender with positive bowel sounds. Positive pedal pulses with no edema. Patient remains on constant observation for safety.
--- NOTE | 2024-09-03 10:10 | PC.NURSE ---
Patient's friend Comfort reached out to ask if patient was stable enough to fly to the rehab facility in [place] or would she need to rent a car. Care team unaware of this plan and still need to evaluate. Reached out to patients who stated this plan was in motion prior to patient presenting to the ED yesterday. Informed patient would need to be seen by the Care Team prior to discharge to determine LOC patient would require. Provider notified of above information.
[2024-09-03 11:15] LABS: HCG Quantitative < 2 mIU/mL
[2024-09-03 11:55] LABS: Appearance Urine Cloudy; Color Urine Dark Yellow; Glucose Urine UA 100 mg/dL (Negative); Leukocyte Esterase Urine Trace (Negative); Nitrite Urine Negative (Negative); Specific Gravity - Urine >= 1.030 (1.005-1.025); UMIC TRIGGER UACC YES; Urine Blood Negative (Negative); Urine Ketones Trace mg/dL (Negative); Urine Protein 30 (1+) mg/dL (Neg-Trace)
[2024-09-03 12:04] LABS: Bacteria Urine Trace (None Seen); Hyaline Casts Urine 0-2 /LPF (0-2); RBC Urine 0-2 /HPF (0-2); WBC Urine 0-5 /HPF (0-5)
[2024-09-03 12:10] LABS: Amphetamine Screen Urine Not Detected (Not Detect); Barbiturates, Urine Not Detected (Not Detect); Benzodiazepines Screen Urine POSITIVE (Not Detect); Buprenorphine Scr Not Detected (Not Detect); Cannabinoid Screen Urine POSITIVE (Not Detect); Cocaine Screen Urine POSITIVE (Not Detect); Fentanyl, urine POSITIVE (Not Detect); Methadone Screen, Urine Not Detected (Not Detect); Opiate Screen Urine POSITIVE (Not Detect); Oxycodone Screen Urine Not Detected (Not Detect); Phencyclidine Screen Urine Not Detected (Not Detect)
[2024-09-03] MEDS: LORazepam 1 MG TABLET 2 MG PO ×2 (13:39→14:48)
--- NOTE | 2024-09-03 13:45 | PC.NURSE ---
Report given and patient to transition to the pod
--- NOTE | 2024-09-03 14:26 | MHC.EDTECH ---
Patient was brought from the Main ED to the POD @ this time, T/W removed belongings from the [place] and placed them in Locker# 9 in the POD. RN aware
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
--- NOTE | 2024-09-03 15:31 | PC.NURSE ---
Patient appears to be sleeping at this time secondary to the effects of PO Ativan. Will avoid waking patient at this time to avoid agitation
--- NOTE | 2024-09-03 15:44 | MHC.CARE ---
Pt ?will be a Dual DX bedsearch
--- NOTE | 2024-09-03 16:46 | MHC.CARE ---
Pt was accepted to [facility], [address] [facility] [place] [address] for tomorrow 09/04/24. ETA 11am, accepting is Dr. Alves
--- NOTE | 2024-09-03 17:05 | PHA.MEDREC ---
Pharmacy Consult ? Medication Reconciliation Pharmacy has completed the medication reconciliation. MED REC DONE BY NURSING REVIEWED BY TAWNY
--- NOTE | 2024-09-03 17:09 | MHC.EDTECH ---
Signed COBRA and med necc/copies in chart. [facility] trip booked for 11AM 09/04. Needs remainder of paperwork printed closer to discharge time.
[2024-09-03] MEDS: traZODone HCL 100 MG TABLET 200 MG PO (19:58)
[2024-09-03] MEDS: Gabapentin 400 MG CAPSULE PO (19:59)
[2024-09-03] MEDS: lamoTRIgine 25 MG TABLET PO (19:59)
[2024-09-03] MEDS: cloNIDine HCL 0.1 MG TABLET PO (19:59)
[2024-09-03] MEDS: busPIRone HCl 5 MG TABLET 15 MG PO (19:59)
[2024-09-03 20:01] LABS: Glucose, Whole Blood 132 mg/dL (60-115)
[2024-09-03] MEDS: Propranolol HCL 10 MG TABLET PO (20:01)
--- NOTE | 2024-09-03 20:18 | MHC.CARE ---
Pt will be going to [place] tonight instead of tomorrow
== END 2024-09-03 21:10 ==
PROVIDERS: Emergency Provider Emergency Medicine
DX: F19.10 Other psychoactive substance abuse, uncomplicated (principal); F32.9 Major depressive disorder, single episode, unspecified; R45.851 Suicidal ideations; R45.1 Restlessness and agitation; E16.2 Hypoglycemia, unspecified; D64.9 Anemia, unspecified; Z79.899 Other long term (current) drug therapy
CPT/HCPCS: 36415; 80048; 80076; 80143; 80179; 80307; 81001; 82947; 83690; 84702; 85025; 93005; 96374; 96375; 96376; 99285; J1200; J2405; J3360; S9485

== ENCOUNTER → 2024-09-02 15:58 | Outpatient (BNV) | payer BC, SELFPAY | PROVIDERS: Emergency Provider Emergency Medicine; Visit Provider Internal Medicine | DX: F11.19 Opioid abuse with unspecified opioid-induced disorder (principal) | CPT/HCPCS: 93010 ==